=== PATIENT | male | born 1955 | race African-American/Black ===

== ENCOUNTER → 2016-07-30 | Outpatient (CLI) | payer OTHER | LOC: NEU 10:54 | PROVIDERS: ATTEND Psychiatry & Neurology Neurology | DX: M47.817 Spondylosis without myelopathy or radiculopathy, lumbosacral region (principal); G62.89 Other specified polyneuropathies; G56.03 Carpal tunnel syndrome, bilateral upper limbs; G57.32 Lesion of lateral popliteal nerve, left lower limb | CPT/HCPCS: 95886; 95912 ==